=== PATIENT | female | born 1985 | race African-American/Black ===

== ENCOUNTER 2016-12-21 17:22 | Emergency (ER) | payer SELFPAY ==
[~2016-12-21] VITALS: Ht 170.2 cm; Wt 147.9 kg
[2016-12-21 18:23] VITALS: BP 154/87
[2016-12-21] MEDS ORDERED: AZIT250T6 PO (19:14)
[2016-12-21] MEDS ORDERED: PROAIR HFA8.5 GM INH (19:14)
[2016-12-21] MEDS ORDERED: PRED50TA PO (19:14)
[2016-12-21] MEDS ORDERED: D-ME118S2 PO (19:14)
--- NOTE | 2016-12-21 19:14 | PHYS DOC ---
Past Medical History Past Medical History: No Pertinent History Past Surgical History: No Surgical History Alcohol Use: None Drug Use: None Adult General Chief Complaint Chief Complaint: FLU SYMPTOM HPI HPI Patient is a 31 year old female presents emergency room with a complaint of nasal congestion, headache and a nonproductive cough is been ongoing for the past 4 days. Patient denies fevers or chills. She does admit to myalgias and arthralgias. She denies any exposure to others with similar symptoms. Patient denies any history of cardiopulmonary disease. Patient is a smoker. Patient denies antibiotic use, foreign travel or hospitalization were past 90 days. Review of Systems Review of Systems Constitutional: Denies fever or chills [] Eyes: Denies change in visual acuity, redness, or eye pain [] HENT: Denies nasal congestion or sore throat [] Respiratory: Denies cough or shortness of breath [] Cardiovascular: No additional information not addressed in HPI [] GI: Denies abdominal pain, nausea, vomiting, bloody stools or diarrhea [] : Denies dysuria or hematuria [] Musculoskeletal: Denies back pain or joint pain [] Integument: Denies rash or skin lesions [] Neurologic: Denies headache, focal weakness or sensory changes [] Endocrine: Denies polyuria or polydipsia [] Allergies Allergies Allergies Coded Allergies Type Severity Reaction Last Updated Verified No Known Drug Allergies 03/03/15 No Physical Exam Physical Exam Constitutional: Well developed, well nourished, no acute distress, non-toxic appearance. [] HENT: Normocephalic, atraumatic, bilateral external ears normal, oropharynx moist, no oral exudates, boggy nasal Mucosa with clear rhinorrhea. Eyes: PERRLA, EOMI, conjunctiva normal, no discharge. [] Neck: Normal range of motion, no tenderness, supple, no stridor. Brudzinski's negative. There is bilateral anterior posterior cervical lymphadenopathy. Cardiovascular:Heart rate regular rhythm, no murmur [] Lungs & Thorax: There is no respiratory distress respiratory fatigue. There is no posturing or sensory muscle use. Patient has coarse, central breath sounds are present bilaterally. These appear to clear somewhat with deep breath and cough. Peripheral lung sounds are clear to auscultation. Abdomen: Bowel sounds normal, soft, no tenderness, no masses, no pulsatile masses. [] Skin: Warm, dry, no erythema, no rash. [] Back: No tenderness, no CVA tenderness. [] Extremities: No tenderness, no cyanosis, no clubbing, ROM intact, no edema. [] Neurologic: Alert and oriented X 3, normal motor function, normal sensory function, no focal deficits noted. [] Psychologic: Affect normal, judgement normal, mood normal. [] Current Patient Data Vital Signs Vital Signs Date Time Temp Pulse Resp B/P Pulse Ox O2 Delivery O2 Flow Rate FiO2 12/21/16 18:23 99.3 82 20 98 Room Air 99.3 EKG EKG [] Radiology/Procedures Radiology/Procedures [] Course & Med Decision Making Course & Med Decision Making Pertinent Labs and Imaging studies reviewed. (See chart for details) [] Dragon Disclaimer Dragon Disclaimer This electronic medical record was generated, in whole or in part, using a voice recognition dictation system. Departure Departure Impression: Primary Impression: Bronchitis Disposition: HOME, SELF-CARE Condition: GOOD Referrals: NO PCP (PCP) Patient Instructions: Acute Bronchitis, [id number], Smoking Cessation, Tips For Success, Smoking Hazards Additional Instructions: 1. Take the medications prescribed. 2. Review the discharge instructions provided for self-care and reasons to return the emergency department. 3. Use the pamphlet provided for assistance in finding a primary care doctor to address your medical concerns and provide follow-up care. Scripts Albuterol Sulfate (Proair Hfa Inhaler)8.5 Gm [email or web address] Puff INH PRN Q6HRS PRN SHORTNESS OF BREATH #1 INHALER Ref 0 Prov:GERMANIA FOWLER 12/21/16 D-Methorphan Hb/Prometh Hcl (Promethazine-Dm Syrup)118 Ml Syrup5 Ml PO PRN Q4HRS #120 ML Prov:GERMANIA FOWLER 12/21/16 Prednisone 50 Mg Tablet1 Tab PO DAILY #5 TAB Prov:GERMANIA FOWLER 12/21/16 Azithromycin (Azithromycin Tablet)250 Mg Tablet1 Pkg PO UD #6 TAB Prov:GERMANIA FOWLER 12/21/16 GERMANIA FOWLER Dec 21, 2016 19:14
== END 2016-12-21 19:40 | disposition home or self-care (01) ==
LOC: ER 17:22
DX: J40 Bronchitis, not specified as acute or chronic (principal); F17.200 Nicotine dependence, unspecified, uncomplicated
CPT/HCPCS: 99283